=== PATIENT | female | born 1980 | race Two or more races ===

== ENCOUNTER 2017-09-01 18:30 | Emergency (ER) | payer BC, OTHER ==
[~2017-09-01] VITALS: Ht 149.9 cm; Wt 50.0 kg
[~2017-09-01 18:30] MED LIST: TOPI200T6 PO
[2017-09-01] MEDS ORDERED: SODIUM CHLORIDE 0.9% 1,000 ML IV ONE (18:43)
[2017-09-01] MEDS ORDERED: ONDANSETRON ODT 8 MG ONE (18:45)
[2017-09-01] MEDS ORDERED: MORPHINE SULFATE 4 MG/ML, 1ML IVPush PRN (19:00)
[2017-09-01] MEDS ORDERED: ONDANSETRON ODT 8 MG PO ONE (19:00)
[2017-09-01] MEDS ORDERED: SODIUM CHLORIDE 0.9% 1,000ML IVBOLUS ONE ×2 (19:00→20:00)
[2017-09-01] MEDS ORDERED: SODIUM CHLORIDE FLUSH 10ML SYR IVF ONE (19:00)
[2017-09-01 19:11] LABS: BASOPHILS # (AUTO) 0.06 x10^3/uL (0-0.1); BASOPHILS % (AUTO) 0 % (0-1); EOSINOPHILS # (AUTO) 0.01 x10^3/uL (0-0.4); EOSINOPHILS % (AUTO) 0 % (1-7); LYMPHOCYTES # (AUTO) 1.58 x10^3/uL (1-3.4); LYMPHOCYTES % (AUTO) 12 % (22-44); MD NO; MEAN CORPUSCULAR HEMOGLOBIN 33.2 pg (27.0-34.8); MEAN CORPUSCULAR HGB CONC 34.4 g/dL (32.4-35.8); MEAN CORPUSCULAR VOLUME 96.4 fL (80-100); MEAN PLATELET VOLUME 6.3 fL (7.4-10.4); MONOCYTES # (AUTO) 0.15 x10^3/uL (0.2-0.8); MONOCYTES % (AUTO) 1 % (2-9); NEUTROPHILS # (AUTO) 11.78 x10^3/uL (1.8-6.8); NEUTROPHILS % (AUTO) 87 % (42-75); PLATELET COUNT 329 x10^3/uL (130-400); RED BLOOD COUNT 4.55 x10^6/uL (3.82-5.3); RED CELL DISTRIBUTION WIDTH 12.4 % (9.6-15.2)
[2017-09-01] MEDS ORDERED: MORPHINE SULFATE 4 MG/ML, 1ML ONE (19:11)
[2017-09-01 19:12] LABS: MICROSCOPIC AUTO
[2017-09-01 19:14] LABS: CULTURE INDICATED? NO
[2017-09-01 19:23] LABS: ALBUMIN 4.3 g/dL (3.4-5.0); ANION GAP 17 mmol/L (5-15); CALCIUM 8.3 mg/dL (8.5-10.1); CHLORIDE 105 mmol/L (98-107)
[2017-09-01 19:28] LABS: ALANINE AMINOTRANSFERASE 34 U/L (12-78); ALKALINE PHOSPHATASE 34 U/L (45-117); BILIRUBIN,TOTAL 0.3 mg/dL (0.2-1.0); CREATININE 0.78 mg/dL (0.55-1.02); TOTAL PROTEIN 7.9 g/dL (6.4-8.2)
[2017-09-01] MEDS ORDERED: PROMETHAZINE 25 MG/ML, 1ML ONE (19:44)
[2017-09-01] MEDS ORDERED: PROMETHAZINE 25 MG/ML, 1ML IM ONE (20:00)
[2017-09-01 20:36] VITALS: BP 117/70
[2017-09-01] MEDS ORDERED: OMNIPAQUE 350 MG/ML, 100ML BOTTLE ONE (20:47)
== END 2017-09-01 21:09 | disposition home or self-care (01) ==
LOC: ED 20:00
DX: E86.0 Dehydration (principal); E86.9 Volume depletion, unspecified
CPT/HCPCS: 36415; 74177; 80053; 81001; 83690; 84703; 85025; 96361; 96372; 96374; 99285; J2550; J7030; Q0162; Q9967

== ENCOUNTER 2018-03-09 16:03 | Emergency (ER) | payer OTHER ==
[~2018-03-09] VITALS: Ht 149.9 cm; Wt 54.5 kg
--- NOTE | 2018-03-09 16:37 | NUR ---
PT ARRIVES TO ED WITH RESP SYMPTOMS THAT ARE CAUSING HER PAIN WHEN SHE COUGHS. PT HAD CONJUCTIVITS AND WAS ON ABX AUGMENTIN AND THEN CLINDAMYCIN AND HAS HAD NO RELIEF. PT REPROTS TAKING ALL ABX PERSCRIBED. PT RECENTLY COMPLETED STEROIDS AND SHE FEELS THAT THE SWELLING IN HER FACE HAS INCREASED. PT REPORTS THAT SHE FEELS LIKE SHE IS NOT GETTING BETTER AND WOULD LIKE TO BE REEVALUATED. PT VSS AT THIS TIME AND NADN. DOES HAVE PRODUCTIVE LOOSE COUGH.
[2018-03-09 18:17] VITALS: BP 106/73
--- NOTE | 2018-03-09 18:17 | NUR ---
BREAK RN: PT RESTING ON [facility]. NO ACUTE DISTRESS NOTED. NO NEEDS REQUESTED AT THIS TIME.
--- NOTE | 2018-03-09 18:43 | NUR ---
BREAK RN: Patient/Caregiver given discharge instructions and they have confirmed that they understand the instructions. Patient ambulatory with steady gait. PT LEFT WITH ALL PERSONAL BELONGINGS.
== END 2018-03-09 18:45 | disposition home or self-care (01) ==
LOC: ED 18:39
DX: H10.023 Other mucopurulent conjunctivitis, bilateral (principal); B34.9 Viral infection, unspecified
CPT/HCPCS: 70450; 71046; 93005; 99284